=== PATIENT | male | born 1995 | race Caucasian/White ===

== ENCOUNTER 2021-09-08 17:12 | Emergency (ER) | payer SELFPAY ==
[~2021-09-08] VITALS: Ht 182.8 cm; Wt 81.6 kg
[~2021-09-08 17:12] MED LIST: KEFLEX500 MG PO; MOTRIN800 MG PO; NKHM; ZITHROMAX Z PA250 MG PO
== END 2021-09-08 18:37 | disposition left against medical advice (07) ==
LOC: ED 17:12
DX: M54.50 Low back pain, unspecified (principal); Z53.21 Procedure and treatment not carried out due to patient leaving prior to being seen by health care provider; W10.8XXA Fall (on) (from) other stairs and steps, initial encounter; Y93.H1 Activity, digging, shoveling and raking; Y92.89 Other specified places as the place of occurrence of the external cause; Y99.8 Other external cause status

== ENCOUNTER 2022-07-10 17:07 | Emergency (ER) | payer BC ==
[~2022-07-10] VITALS: Ht 182.8 cm; Wt 86.2 kg
== END 2022-07-10 19:43 | disposition home or self-care (01) ==
LOC: ED 17:07
DX: S93.401A Sprain of unspecified ligament of right ankle, initial encounter (principal); W10.8XXA Fall (on) (from) other stairs and steps, initial encounter; Y93.89 Activity, other specified; Y92.89 Other specified places as the place of occurrence of the external cause; Y99.8 Other external cause status

== ENCOUNTER 2025-02-06 10:32 | Emergency (ER) | payer OTHER ==
[~2025-02-06] VITALS: Ht 185.4 cm; Wt 95.3 kg
[2025-02-06] MEDS ORDERED: PREDNISONE20 M1 PO (11:19)
[2025-02-06] MEDS ORDERED: Acetaminophen/Hydrocodone 5 MG/325 MG TABLET PO ONE (11:20)
[2025-02-06] MEDS ORDERED: methylPREDNISolone sod succ 125 MG VIAL IM ONE (11:20)
== END 2025-02-06 11:35 | disposition home or self-care (01) ==
LOC: ED 10:32
DX: M54.31 Sciatica, right side (principal)